=== PATIENT | male | born 1995 | race African-American/Black ===

== ENCOUNTER 2019-01-11 11:19 | Emergency (ER) | payer SELFPAY ==
[~2019-01-11] VITALS: Ht 182.9 cm; Wt 151.0 kg
[2019-01-11 11:24] VITALS: BP 169/100
== END 2019-01-11 12:19 | disposition home or self-care (01) ==
LOC: ER 11:19
DX: J02.9 Acute pharyngitis, unspecified (principal)
CPT/HCPCS: 86403-TC; 87070-TC